=== PATIENT | male | born 1955 | race Caucasian/White ===

== ENCOUNTER → 2024-04-15 08:51 | Outpatient (REF) | payer BC, SELFPAY ==
[2024-04-15 10:20] LABS: % Basophils 0.9 % (0-2); % Eosinophils 1.3 % (0-6); % Immature Granulocytes 0.3 % (0-0.5); % Lymphocytes 27.1 % (20.5-51.1); % Neutrophils 61.4 % (42.2-75.2); Absolute Basophils 0.1 10^3/uL (0-0.2); Absolute Eosinophils 0.1 10^3/uL (0-0.7); Absolute Lymphocytes 1.7 10^3/uL (1.2-3.4); Absolute Monocytes 0.6 10^3/uL (0.1-0.6); Absolute Neutrophils 3.9 10^3/uL (1.4-6.5); Hematocrit 46.6 % (39.0-52.0); Hemoglobin 15.7 g/dL (13.0-18.0); Mean Corp Hgb Conc. 33.7 g/dL (33.0-37.0); Mean Corpuscular Hgb 28.5 pg (27.0-31.0); Mean Corpuscular Volume 84.6 fL (80.0-94.0); Mean Platelet Volume 10.9 fL (7.4-10.4); Nucleated Red Blood Cells % 0 % (-); Platelet Count 200 10^3/uL (130-400); Red Blood Cell Count 5.51 10^6/uL (4.70-6.10); Red Cell Dist. Width 12.3 % (11.5-14.5); White Blood Cell Count 6.3 10^3/uL (4.8-10.8)
[2024-04-15 10:44] LABS: Urine Protein 13 mg/dl
[2024-04-15 10:51] LABS: Intact PTH 46.3 pg/ml (13.6-85.8)
[2024-04-15 11:04] LABS: ALT (SGPT) 19 U/L (0-50); AST (SGOT) 26 U/L (17-59); Albumin 4.5 g/dl (3.5-5.0); Alkaline Phosphatase 80 U/L (38-126); Blood Urea Nitrogen 27 mg/dl (9-20); Carbon Dioxide 25 mmol/L (22-30); Chloride 102 mmol/L (98-107); Glucose 107 mg/dl (70-99); HDL Cholesterol 58 mg/dl; LDL Cholesterol, Calculated 114 mg/dl; Potassium 4.3 mmol/L (3.5-5.1); Sodium 137 mmol/L (135-145); Total Bilirubin 0.8 mg/dl (0.2-1.3); Total Cholesterol 191 mg/dl (50-199); Total Protein 7.6 g/dl (6.3-8.2); Triglyceride 95 mg/dl (10-149); Very Low Density Lipoprotein 19 mg/dl (0-30); eGFR 50.71
[2024-04-15 12:23] LABS: Protein/creatinine Ratio 0.5
[2024-04-16 11:41] LABS: PSA Total 3.3 ng/mL (0.0-4.0)
== END ==
LOC: REG 08:51
PROVIDERS: ATTENDING PHYSICIAN Specialist; FAMILY PHYSICIAN Nurse Practitioner Family; OTHER PHYSICIAN Specialist; REFERRING PHYSICIAN Internal Medicine Cardiovascular Disease
DX: R97.20 Elevated prostate specific antigen [PSA] (principal); E78.5 Hyperlipidemia, unspecified; I10 Essential (primary) hypertension; N26.9 Renal sclerosis, unspecified; Z12.5 Encounter for screening for malignant neoplasm of prostate; Z00.00 Encounter for general adult medical examination without abnormal findings; Z13.220 Encounter for screening for lipoid disorders
CPT/HCPCS: 36415; 80053; 80061; 82570; 83970; 84100; 84153; 84154; 84156; 85025

== ENCOUNTER → 2024-08-09 08:18 | Outpatient (REF) | payer BC, SELFPAY ==
[2024-08-09 09:49] LABS: Urine Albumin Negative (Neg - Trace); Urine Bilirubin Negative (Negative); Urine Character Clear (Clear); Urine Color Yellow; Urine Glucose Negative (Negative); Urine Ketone Negative (Negative); Urine Leukocyte Negative (Negative); Urine Nitrite Negative (Negative); Urine Occult Blood Negative (Negative); Urine Urobilinogen Negative (Neg - 1+); Urine pH 6.5 (5.0-9.0)
[2024-08-09 09:51] LABS: Albumin 4.5 g/dl (3.5-5.0); Blood Urea Nitrogen 29 mg/dl (9-20); Carbon Dioxide 29 mmol/L (22-30); Chloride 98 mmol/L (98-107); Glucose 104 mg/dl (70-99); Phosphorus 3.5 mg/dl (2.5-4.5); Potassium 4.4 mmol/L (3.5-5.1); Sodium 140 mmol/L (135-145); eGFR > 60.00
[2024-08-09 10:23] LABS: Protein/creatinine Ratio 0.1; Urine Protein 6 mg/dl
[2024-08-09 11:39] LABS: Glycohemoglobin (HgbA1c) 5.7 % (4.0-5.6)
== END ==
LOC: REG 08:18
PROVIDERS: ATTENDING PHYSICIAN Specialist; FAMILY PHYSICIAN Family Medicine
DX: R73.09 Other abnormal glucose (principal); R80.0 Isolated proteinuria
CPT/HCPCS: 36415; 80069; 81003; 82570; 83036; 84156

== ENCOUNTER → 2025-04-22 06:35 | Outpatient (REF) | payer MEDICARE, OTHER, SELFPAY ==
[2025-04-22 07:21] LABS: % Basophils 0.7 % (0-2); % Eosinophils 1.4 % (0-6); % Immature Granulocytes 0.4 % (0-0.5); % Lymphocytes 21.8 % (20.5-51.1); % Monocytes 8.7 % (1.7-9.3); Absolute Basophils 0.1 10^3/uL (0-0.2); Absolute Eosinophils 0.1 10^3/uL (0-0.7); Absolute Lymphocytes 1.6 10^3/uL (1.2-3.4); Absolute Monocytes 0.6 10^3/uL (0.1-0.6); Absolute Neutrophils 4.9 10^3/uL (1.4-6.5); Hematocrit 47.2 % (39.0-52.0); Mean Corp Hgb Conc. 33.9 g/dL (33.0-37.0); Mean Corpuscular Hgb 28.1 pg (27.0-31.0); Mean Corpuscular Volume 82.8 fL (80.0-94.0); Mean Platelet Volume 10.9 fL (7.4-10.4); Nucleated Red Blood Cells % 0 % (-); Platelet Count 221 10^3/uL (130-400); Red Cell Dist. Width 12.3 % (11.5-14.5); White Blood Cell Count 7.2 10^3/uL (4.8-10.8)
[2025-04-22 07:29] LABS: Urine Albumin Negative (Neg - Trace); Urine Bilirubin Negative (Negative); Urine Character Clear (Clear); Urine Color Yellow; Urine Glucose Negative (Negative); Urine Ketone Negative (Negative); Urine Leukocyte Negative (Negative); Urine Nitrite Negative (Negative); Urine Occult Blood Negative (Negative); Urine Urobilinogen Negative (Neg - 1+)
[2025-04-22 08:13] LABS: ALT (SGPT) 19 U/L (0-50); AST (SGOT) 24 U/L (17-59); Albumin 4.6 g/dl (3.5-5.0); Alkaline Phosphatase 77 U/L (38-126); Blood Urea Nitrogen 26 mg/dl (9-20); Calcium 9.9 mg/dl (8.4-10.2); Carbon Dioxide 25 mmol/L (22-30); Chloride 104 mmol/L (98-107); Glucose 110 mg/dl (70-99); HDL Cholesterol 49 mg/dl; LDL Cholesterol, Calculated 121 mg/dl; Phosphorus 3.2 mg/dl (2.5-4.5); Potassium 4.2 mmol/L (3.5-5.1); Sodium 137 mmol/L (135-145); Total Bilirubin 0.8 mg/dl (0.2-1.3); Total Cholesterol 199 mg/dl (50-199); Total Protein 7.6 g/dl (6.3-8.2); Triglyceride 147 mg/dl (10-149); Very Low Density Lipoprotein 29 mg/dl (0-30)
[2025-04-22 08:41] LABS: PSA, Total - Diagnostic 4.15 ng/ml (0.0-4.0)
[2025-04-22 08:44] LABS: Glycohemoglobin (HgbA1c) 5.7 % (4.0-5.6)
[2025-04-22 09:34] LABS: Protein/creatinine Ratio 0.3; Urine Protein 11 mg/dl
== END ==
LOC: REG 06:35
PROVIDERS: ATTENDING PHYSICIAN Specialist; FAMILY PHYSICIAN Nurse Practitioner Family; REFERRING PHYSICIAN Specialist
DX: I12.9 Hypertensive chronic kidney disease with stage 1 through stage 4 chronic kidney disease, or unspecified chronic kidney disease (principal); N18.31 Chronic kidney disease, stage 3a; Z78.9 Other specified health status; E78.00 Pure hypercholesterolemia, unspecified; R97.20 Elevated prostate specific antigen [PSA]; R73.03 Prediabetes; N26.9 Renal sclerosis, unspecified; I10 Essential (primary) hypertension
CPT/HCPCS: 36415; 80053; 80061; 81003; 82570; 83036; 84100; 84153; 84156; 85025

== ENCOUNTER → 2025-06-24 08:44 | Outpatient (REF) | payer MEDICARE, OTHER, SELFPAY | LOC: HWRCS 08:44 | PROVIDERS: ATTENDING PHYSICIAN Student in an Organized Health Care Education/Training Program; FAMILY PHYSICIAN Nurse Practitioner Family | DX: I34.0 Nonrheumatic mitral (valve) insufficiency (principal) | CPT/HCPCS: 93306 ==

== ENCOUNTER 2025-08-27 06:37 | Outpatient (RCR) | payer MEDICARE, OTHER, SELFPAY | END 2025-08-27 23:59 | disposition home or self-care (01) | LOC: RPT 06:37 | PROVIDERS: ATTENDING PHYSICIAN Physical Medicine & Rehabilitation; FAMILY PHYSICIAN Nurse Practitioner Family | DX: M47.816 Spondylosis without myelopathy or radiculopathy, lumbar region (principal); Z73.6 Limitation of activities due to disability | CPT/HCPCS: 97112; 97161 ==

== ENCOUNTER 2025-09-25 07:07 | Outpatient (RCR) | payer MEDICARE, OTHER, SELFPAY | END 2025-09-25 23:59 | disposition home or self-care (01) | LOC: RPT 07:07 | PROVIDERS: ATTENDING PHYSICIAN Physical Medicine & Rehabilitation; FAMILY PHYSICIAN Nurse Practitioner Family | DX: M47.816 Spondylosis without myelopathy or radiculopathy, lumbar region (principal); Z73.6 Limitation of activities due to disability | CPT/HCPCS: 97110; 97112 ==

== ENCOUNTER 2025-10-28 13:42 | Outpatient (RCR) | payer MEDICARE, OTHER, SELFPAY | END 2025-10-28 23:59 | disposition home or self-care (01) | LOC: RPT 13:42 | PROVIDERS: ATTENDING PHYSICIAN Physical Medicine & Rehabilitation; FAMILY PHYSICIAN Nurse Practitioner Family | DX: M47.816 Spondylosis without myelopathy or radiculopathy, lumbar region (principal); Z73.6 Limitation of activities due to disability | CPT/HCPCS: 97110; 97112 ==